=== PATIENT | female | born 2000 | race Caucasian/White ===

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

== ENCOUNTER 2024-03-22 14:11 | Outpatient (CLI) | payer BC ==
[2024-03-22 15:02] LABS: Appearance,Urine Clear (Clear); Bacteria,Urine Rare /hpf; Bilirubin,Urine Negative (Negative); Blood,Urine Negative (Negative); Color,Urine Yellow; Glucose,Urine (UA) Negative (Negative); Ketones,Urine Negative (Negative); Leukocyte Esterase,Urine Moderate (Negative); Mucus,Urine Many /hpf; Nitrite,Urine Negative (Negative); PH, Urine 6.5 (5.0-8.0); Protein,Urine Trace (Negative); RBC,Urine 1 /hpf (0-5); Specific Gravity,Urine 1.025 (1.001-1.035); Squamous Epithelial Cell,Urine 1 /hpf (0-4); Urobilinogen,Urine <2.0 mg/dL (<2.0); WBC,Urine 2 /hpf (0-5)
[2024-03-22 15:14] LABS: Protein/Creatinine Ratio,Urine 0.035
[2024-03-22 15:14] LABS: ALT 47 U/L (4-34); AST 41 U/L (14-36); African American GFR (CKD) >90 (>60 ml/min/1.73 sqM); Blood Urea Nitrogen 3 mg/dL (7-17); LDH 142 U/L (120-246); Non-African American GFR(CKD) >90 (>60 ml/min/1.73 sqM); Uric Acid 4.4 mg/dL (3.7-7.4)
[2024-03-22 15:27] LABS: Basophils % (A) 0 %; Eosinophils # (A) 0.1 k/uL (0-0.7); Eosinophils % (A) 1 %; HCT 34.6 % (34.0-46.0); HGB 11.2 gm/dL (11.4-16.0); Lymphocytes # (A) 2.3 k/uL (1.0-4.8); Lymphocytes % (A) 23 %; MCH 28.9 pg (25.0-35.0); MCHC 32.4 g/dL (31.0-37.0); MCV 89.3 fL (80.0-100.0); Mean Platelet Volume 7.8; Monocytes # (A) 0.3 k/uL (0-1.0); Monocytes % (A) 3 %; Neutrophils % (A) 71 %; Platelet Count 240 k/uL (150-450); RBC 3.88 m/uL (3.80-5.40); RDW 13.5 % (11.5-15.5); WBC 9.8 k/uL (3.8-10.6)
[2024-03-22 15:52] VITALS: BP 125/79; PULSE 99; RESP 16; TEMP 96.6
--- NOTE | 2024-03-24 16:03 | P.MSEPDOC ---
Presenting Problems - Arrival Data Date of Arrival on Unit: 03/22/24 Time of Arrival on Unit: 14:11 Mode of Transport: Ambulatory - Complaint OB-Reason for Admission/Chief Complaint: PIH Medical History - Information : 1 Para: 0 Term: 0 : 0 Abortions: Spontaneous or Elective: 0 Number of Living Children: 0 - Gestational Age Gestational Age by CRISTINA (wks/days): 35 Weeks and 2 Days Review of Systems - Review of Systems Constitutional: No problems Breast: No problems ENT: No problems Cardiovascular: No problems Respiratory: No problems Gastrointestinal: No problems Genitourinary: No problems Musculoskeletal: No problems Neurological: No problems Skin: No problems Vital Signs - Temperature Temperature: 96.6 F Temperature Source: Temporal Artery Scan - Pulse Right Sitting Pulse Rate: 99 Pulse Assessment Method: Automatic Cuff - Respirations Respiratory Rate: 16 Oxygen Delivery Method: Room Air O2 Sat by Pulse Oximetry: 98 - Blood Pressure Right Arm Blood Pressure: 125/79 Blood Pressure Mean: 94 Blood Pressure Source: Automatic Cuff Medical Screen Scoring - Assessment - Baby A Baseline FHR: 140 Heart Rate - NICHD Category: Category I (Normal) NST: Reactive Physician Notification - Physician Notified Physician Notified Date: 03/22/24 Physician Notified Time: 15:40 Physician: Jewels Reyna Order Received: Yes (d/c home) Maternal Triage Index - Non-Urgent/Priority 4 Non-Urgent Priority 4: Yes Criteria Met for Priority 4: bps 131/87, 125/79, 118/79 Disposition - Disposition OB Disposition: Discharge to home, Written follow up instructions reviewed Discharge Date: 03/22/24 Discharge Time: 15:46 I agree with the RN Medical Screening Exam: Yes Physician's MSE Comment: I have neither seen nor examined the patient Case reviewed; plan agreed upon as documented in EMR&OBIX.: Yes Diagnosis: GESTATIONAL HTN W/O SIGNIFICANT PROTEINURIA, THIRD TRIMESTER
== END 2024-03-22 15:46 | disposition home or self-care (01) ==
LOC: FBPOP 14:11
PROVIDERS: ATTEND Obstetrics & Gynecology
DX: O13.3 Gestational [pregnancy-induced] hypertension without significant proteinuria, third trimester (principal); Z91.018 Allergy to other foods; Z3A.35 35 weeks gestation of pregnancy
CPT/HCPCS: 59025; 81001; 82565; 82570; 83615; 84156; 84450; 84460; 84520; 84550; 85025

== ENCOUNTER 2024-04-17 05:47 | Inpatient (IN) | payer BC ==
[2024-04-17] MEDS ORDERED: miSOPROStoL 200 MCG TAB RECTAL PRN (06:24)
[2024-04-17] MEDS ORDERED: CARBOPROST TROMETHAMINE 250 MCG/ML 1 ML AMP IM PRN (06:24)
[2024-04-17] MEDS ORDERED: OXYTOCIN 10 UNIT/ML 1 ML VIAL IM PRN (06:24)
[2024-04-17] MEDS ORDERED: METHYLERGONOVINE 0.2 MG/ML 1 ML AMP IM PRN (06:24)
[2024-04-17] MEDS ORDERED: TERBUTALINE 1 MG/ML VIAL SQ PRN (06:24)
[2024-04-17] MEDS ORDERED: TRANEXAMIC 1,000 MG/100ML-NACL 1,000 MG in EMPTY BAG 1 BAG IV PRN (06:24)
[2024-04-17] MEDS ORDERED: LIDOCAINE 0.5% (PF) 5 MG/ML (50 ML SDV) SQ PRN (06:24)
[2024-04-17] MEDS ORDERED: miSOPROStoL 200 MCG TAB PO PRN (06:24)
[2024-04-17 06:31] VITALS: RESP 16
[2024-04-17] MEDS: LACTATED RINGERS 1,000 ML IV SCH (06:43)
[2024-04-17] MEDS: OXYTOCIN 30 UNITS/500 ML NS 30 UNIT in SALINE 1 500ML.BAG IV SCH (06:44)
[2024-04-17 06:45] LABS: Basophils % (A) 0 %; Eosinophils # (A) 0.1 k/uL (0-0.7); Eosinophils % (A) 1 %; HCT 34.4 % (34.0-46.0); Lymphocytes # (A) 2.2 k/uL (1.0-4.8); Lymphocytes % (A) 20 %; MCH 28.4 pg (25.0-35.0); MCV 88.6 fL (80.0-100.0); Mean Platelet Volume 7.8; Monocytes # (A) 0.3 k/uL (0-1.0); Monocytes % (A) 2 %; Neutrophils # (A) 8.3 k/uL (1.3-7.7); Neutrophils % (A) 75 %; Platelet Count 248 k/uL (150-450); RBC 3.89 m/uL (3.80-5.40); RDW 13.8 % (11.5-15.5); WBC 11.1 k/uL (3.8-10.6)
--- NOTE | 2024-04-17 08:54 | P.HPOB ---
History of Present Illness H&P Date: 04/17/24 Chief Complaint: Induction of labor Ms. José is a 23 year old at 39 weeks and 0 days gestation wit EDC of 04/24/2024 by LMP consistent with 9 week US who presents for induction of labor. The has been complicated by maternal class 3 obesity, maternal chronic hypertension (well controlled without antihypertensives), maternal hypothyroidism (on levothyroxine), and a marginal umbilical cord insertion. The fetus is estimated to weigh in the 28%ile for gestational age based on a 32 week growth US. work-up: blood type O positive, antibody screen negative, rubella non- immune, VDRL non-reactive, HBsAg negative, HIV negative HCV Ab non-reactive, gonorrhea negative, chlamydia negative, 1 hour GTT elevated > 3 hour GTT wnl, G BS negative Past Medical History Past Medical History: No Reported History, Hypertension Additional Past Medical History / Comment(s): Hypothyroid, History of Any Multi-Drug Resistant Organisms: None Reported Past Surgical History: No Surgical Hx Reported, Cholecystectomy Past Psychological History: No Psychological Hx Reported Smoking Status: Never smoker Past Alcohol Use History: None Reported Medications and Allergies Home Medications Medication Instructions Recorded Confirmed Type Aspirin 81 mg PO DAILY 03/22/24 04/17/24 History Ferrous Sulfate, Dried [Iron] 28 mg PO DAILY 04/17/24 04/17/24 History Allergies Allergy/AdvReac Type Severity Reaction Status Date / Time food dye AdvReac Unknown Uncoded 03/22/24 14:25 Exam Vital Signs Temp Pulse Resp BP Pulse Ox 04/17/24 06:21 96.1 F L 113 H 16 131/86 98 Intake and Output 04/16/24 04/17/24 04/17/24 22:59 06:59 14:59 Other: Weight 137.892 kg Focused physical exam is performed. This is a healthy-appearing in no apparent distress. Breathing is non-labored. Abdomen is gravid and non-tender. Cervical exam is 2.5/70/-2. AROM is undertaken with clear fluid noted. Extremities non-tender and non-edematous. heart tones are Category I and tocometer is graphing contractions every 2-4 minutes. Results Result Diagrams: 04/17/24 06:28 Abnormal Lab Results - Last 24 Hours (Table) 02/24/25 Range/Units 06:28 WBC 11.1 H (3.8-10.6) k/uL Hgb 11.0 L (11.4-16.0) gm/dL Neutrophils # 8.3 H (1.3-7.7) k/uL Assessment and Plan Assessment: 23 year old at 39 weeks presenting for induction of labor Plan: Admit, clear liquid diet, pitocin per protocol, epidural prn, continuous EFM and tocometer.
[2024-04-17] MEDS: NALBUPHINE 10 MG/ML (10 ML MDV) IV PRN (12:13)
[2024-04-17] MEDS ORDERED: LANOLIN CREAM 1 GM TUBE TOPICAL PRN (20:54)
[2024-04-17] MEDS ORDERED: SIMETHICONE 80 MG CHEWABLE PO PRN (20:54)
[2024-04-17] MEDS ORDERED: diphenhydrAMINE 25 MG CAP PO PRN (20:54)
[2024-04-17] MEDS ORDERED: diphenhydrAMINE 50 MG/ML 1 ML VIAL IVP PRN ×2 (20:54)
[2024-04-17] MEDS ORDERED: diphenhydrAMINE 50 MG CAP PO PRN (20:54)
[2024-04-17] MEDS ORDERED: HYDROCORTISONE 2.5% RECTAL CREAM 30 GM TUBE RECTAL PRN (20:54)
[2024-04-17] MEDS ORDERED: ZOLPIDEM 5 MG TAB PO PRN (20:54)
[2024-04-17] MEDS ORDERED: BENZOCAINE/MENTHOL SPRAY 1 GM/SPRAY AEROSOL TOPICAL PRN (20:54)
--- NOTE | 2024-04-17 20:54 | P.PROBDLV ---
Vaginal Delivery Note - . Vaginal Delivery Note: DATE OF SERVICE: 04/17/2024 PROCEDURE: Normal Vaginal Delivery ATTENDING: Dr. Jewels Reyna MD ESTIMATED BLOOD LOSS: 200 mL FINDINGS: VFI, Apgars 9/9. Weight 7 pounds and 5 ounces (3305 grams) PROCEDURE: Ms. José is a 23 year old at 39 weeks presenting to labor and delivery for induction of labor. For further details on the , please review the admitting H&P. Pitocin was titrated per protocol. AROM was undertaken at 724 revealing clear amniotic fluid. The patient received epidural anesthesia per her request. The patient was completely dilated at 2000. She pushed effectively with Categry II heart tones. A viable female infant was delivered at 2034. The infant was placed on the maternal abdomen and bulb suctioned. The was noted to be spontaneously crying. Cord was clamped and cut after a 60-second delay. The was handed off to the pediatric team. Placenta was delivered whole with gentle cord traction at 2037. Oxytocin was started to facilitate uterine tone. Uterine fundus was found to be firm and below the umbilicus upon fundal massage. Thorough examination of the cervix, vagina, periurethral area, and perineum revealed a small vaginal sulcal laceration that was infiltrated with lidocaine and repaired with 2-0 Vicryl in the running fashion. The patient is stable and allowed to begin the bonding process.
[2024-04-18] MEDS: ACETAMINOPHEN TAB 500 MG TAB PO SCH (01:02)
[2024-04-18] MEDS: IBUPROFEN 800 MG TAB PO SCH (04:52)
[2024-04-18 06:30] LABS: Basophils % (A) 0 %; Eosinophils # (A) 0.1 k/uL (0-0.7); Eosinophils % (A) 1 %; HCT 29.9 % (34.0-46.0); HGB 9.7 gm/dL (11.4-16.0); Lymphocytes # (A) 2.3 k/uL (1.0-4.8); Lymphocytes % (A) 17 %; MCHC 32.4 g/dL (31.0-37.0); MCV 89.8 fL (80.0-100.0); Mean Platelet Volume 7.5; Monocytes # (A) 0.5 k/uL (0-1.0); Monocytes % (A) 4 %; Neutrophils # (A) 10.3 k/uL (1.3-7.7); Neutrophils % (A) 77 %; Platelet Count 239 k/uL (150-450); RBC 3.33 m/uL (3.80-5.40); RDW 13.7 % (11.5-15.5); WBC 13.4 k/uL (3.8-10.6)
[2024-04-18] MEDS: SENNOSIDES-DOCUSATE SODIUM 1 EACH TAB PO SCH (08:14)
--- NOTE | 2024-04-18 08:38 | P.PNOBGVD ---
Subjective - Subjective Principal diagnosis: s/p vaginal delivery Interval history: The patient is doing well this morning and had no acute events overnight. She has no complaints this morning. She reports minimal lochia, passing flatus, voiding without difficulty, ambulating, and eating/drinking without nausea or vomiting. She is her without difficulty. She denies chest pain, shortness of breathing, fevers, or chills overnight. She denies pain or swelling in the legs. Patient reports: Reports appetite normal, Reports voiding normally, Reports pain well controlled, Reports ambulating normally : doing well, nursing well Objective - Latest Vital Signs Latest vital signs: Vital Signs Temp Pulse Resp BP Pulse Ox 04/18/24 08:00 97.9 F 92 16 138/85 97 04/18/24 00:00 94 16 133/67 04/17/24 22:46 93 16 119/60 04/17/24 22:35 100 16 118/63 04/17/24 22:17 99 16 119/63 04/17/24 22:05 94 16 129/65 04/17/24 21:47 99 16 130/68 04/17/24 21:35 91 16 137/70 04/17/24 21:20 90 16 123/63 04/17/24 21:02 96 16 127/65 04/17/24 20:50 98.3 F 102 H 16 137/63 Intake and Output 04/17/24 04/18/24 04/18/24 22:59 06:59 14:59 Intake Total 189.8 Output Total 600 Balance -410.2 Intake: Intake, IV Titration 189.8 Amount Oxytocin 30 Units/500 ml 189.8 Ns 30 unit In Saline 1 500ml.bag @ Per Protocol IV .Q0M [facility] Rx#:[id number] Output: Output, Quantitative 600 Blood Loss Other: # Voids 2 1 - Exam Extremities: Present: normal Abdomen: Present: normal appearance, soft Uterus: Present: normal, firm - Labs Labs: Abnormal Lab Results - Last 24 Hours (Table) 04/18/24 Range/Units 06:15 WBC 13.4 H (3.8-10.6) k/uL RBC 3.33 L (3.80-5.40) m/uL Hgb 9.7 L (11.4-16.0) gm/dL Hct 29.9 L (34.0-46.0) % Neutrophils # 10.3 H (1.3-7.7) k/uL Assessment and Plan Assessment: 23 year old now PPD#1 s/p Plan: 1. . Patient doing well, meeting all milestones appropriately. 2. Viable female . Doing well at bedside. dispo: Anticipate discharge home tomorrow morning. Continue inpatient management at this time.
[2024-04-18] MEDS: MEASLES-MUMPS-RUBELLA VACC/PF 12,500 UNIT/0.5 ML VIAL SQ ONE (13:51)
--- NOTE | 2024-04-19 08:08 | P.DS ---
Providers Date of admission: 04/17/24 05:47 Expected date of discharge: 04/19/24 Attending physician: Jewels Reyna MD Primary care physician: Clifton Juarez DO Hospital Course: Ms. José is a 23 year old now PPD#2 s/p . The patient is doing well this morning and had no acute events overnight. She has no complaints this morning. She reports minimal lochia, passing flatus, voiding without difficulty, ambulating, and eating/drinking without nausea or vomiting. doing well at bedside. She denies chest pain, shortness of breathing, fevers, or chills overnight. She denies pain or swelling in the legs. restrictions are reviewed with the patient including pelvic rest for 6 weeks. The patient is encouraged to call the office if she experiences any heavy bleeding, foul- smelling discharge, breast complaints, or any if she has any other concerns. She will follow up in the office in 1 week for blood pressure check. All questions are answered. Patient Condition at Discharge: Good Plan - Discharge Summary New Discharge Prescriptions: No Action Aspirin 81 mg PO DAILY Ferrous Sulfate, Dried [Iron] 28 mg PO DAILY Discharge Medication List Aspirin 81 mg PO DAILY 03/22/24 [History] Ferrous Sulfate, Dried [Iron] 28 mg PO DAILY 04/17/24 [History] Follow up Appointment(s)/Referral(s): Jewels Reyna MD [STAFF PHYSICIAN] - 05/29/24 11:00 am Activity/Diet/Wound Care/Special Instructions: Instructions 1. Do not begin any exercise program for 3 weeks. 2. Do not resume sexual relations for 6 weeks or longer if uncomfortable. 3. You may take tub baths or showers at any time. 4. You may use tampons if desired after 6 weeks. 5. Keep any areas repaired with stitches clean and dry. 6. If you are not nursing, wear a good fitting, supportive bra during the day and limit fluid intake for at least 1 week to prevent breast engorgement. 7. Call the office, , within the next week to make appointment for your 6 week checkup if it has not already been made. 8. Report any of the following occurrences to the doctor promptly: a. Heavy, excessive bleeding b. Chills, fever c. Burning or frequency of urination d. Pain or redness and breasts if nursing e. Increasing pain or swelling of vulva (stitches). In addition to the above instructions, the following additional should be followed: 1. No heavy lifting or straining (exercising) until after 6 week checkup. 2. Keep abdominal incision clean and dry: You may wear a dressing if more comfortable. 3. Make office appointment for 2 weeks after delivery date. Discharge Disposition: HOME SELF-CARE
[2024-04-19 08:16] VITALS: BP 124/78; PULSE 88; TEMP 97.9
== END 2024-04-19 11:25 | disposition home or self-care (01) | DRG 806 ==
LOC: 4FBP 05:47
PROVIDERS: ADMIT Obstetrics & Gynecology; ATTEND Obstetrics & Gynecology
PROC: 10907ZC Drainage of Amniotic Fluid, Therapeutic from Products of Conception, Via Natural or Artificial Opening (ICD-10-PCS; principal; 2024-04-17)
PROC: 3E033VJ Introduction of Other Hormone into Peripheral Vein, Percutaneous Approach (ICD-10-PCS; principal; 2024-04-17)
PROC: 0HQ9XZZ Repair Perineum Skin, External Approach (ICD-10-PCS; principal; 2024-04-17)
PROC: 10E0XZZ Delivery of Products of Conception, External Approach (ICD-10-PCS; principal; 2024-04-17)
PROC: 3E0134Z Introduction of Serum, Toxoid and Vaccine into Subcutaneous Tissue, Percutaneous Approach (ICD-10-PCS; 2024-04-18)
DX: O43.193 Other malformation of placenta, third trimester (principal); O10.92 Unspecified pre-existing hypertension complicating childbirth; E66.813 Obesity, class 3; E03.9 Hypothyroidism, unspecified; O99.284 Endocrine, nutritional and metabolic diseases complicating childbirth; O99.214 Obesity complicating childbirth; O70.0 First degree perineal laceration during delivery; Z79.82 Long term (current) use of aspirin; Z23 Encounter for immunization; Z3A.39 39 weeks gestation of pregnancy; Z37.0 Single live birth
CPT/HCPCS: 85025; 86850; 86900; 86901; 90707